=== PATIENT | female | born 1980 | race Caucasian/White ===

== ENCOUNTER 2019-11-09 20:05 | Emergency (ER) | payer OTHER, SELFPAY ==
[2019-11-09 20:11] VITALS: BP 130/94; PULSE 89; RESP 15; TEMP 36.6; O2SAT 98; BMI 28.3
[2019-11-09] MEDS: ONDANSETRON 4 MG/2 ML INJ IV ×2 (20:35→23:00)
[2019-11-09 20:42] LABS: Add Manual Diff / Slide Review NO; Basophils Absolute Auto 0 /uL (0-100); Basophils Percent Auto 0.7 % (0-2); Eosinophils Absolute Auto 100 /uL (0-450); Eosinophils Percent Auto 1.7 % (2-4); Hematocrit 45.1 % (36-46); Hemoglobin 15.7 g/dL (12.0-16.0); Lymphocytes Absolute Auto 2400 /uL (1100-4500); Lymphocytes Percent Auto 35.6 % (25-40); Mean Corpuscular HGB Conc 34.9 % (30-36); Mean Corpuscular Hemoglobin 31.6 PG (26-34); Mean Corpuscular Volume 90.8 fL (80-100); Monocytes Absolute Auto 600 /uL (0-900); Monocytes Percent Auto 8.5 % (3-14); Neutrophils Absolute Auto 3600 /uL (1500-7000); Neutrophils Percent Auto 53.5 % (50-75); Platelet Count 229 X10^3/uL (150-400); Red Blood Cell Count 4.97 X10^6/uL (4.0-5.2); Red Cell Distribution Width 12.7 % (11.6-14.8); White Blood Cell Count 6.8 X10^3/uL (4.5-11.0)
[2019-11-09 20:57] LABS: Prothrombin Time 11.5 SECONDS (10.1-12.7)
[2019-11-09 21:00] LABS: PTT Partial Thromboplastin Tim 30 SECONDS (26.4-36.2)
[2019-11-09 21:02] LABS: Alanine Aminotransferase 58 IU/L (<35); Albumin 4.6 g/dL (3.5-5.0); Albumin Globulin Ratio 1.3 (1.0-2.8); Alkaline Phosphatase 45 U/L (38-126); Aspartate Aminotransferase 26 IU/L (14-36); BUN Creatinine Ratio 19.6 (6-22); Bilirubin Total 0.4 mg/dL (0.2-1.3); Blood Urea Nitrogen 18 mg/dL (7-17); Carbon Dioxide 23 mmol/L (22-32); Chloride 107 mmol/L (98-107); Estimated Glomerular Filt Rate > 60.0 mL/min (>60); Globulin 3.5 g/dL (1.7-4.1); Glucose 94 mg/dL (70-100); HEMOLYSIS < 15 (0-50); Lipase 95 U/L (23-300); Sodium 138 mmol/L (137-145); Total Protein 8.1 g/dL (6.3-8.2)
--- NOTE | 2019-11-09 21:08 | ED.ABDPAIN ---
HPI - Abdominal Pain General Chief Complaint: Abdominal Pain Stated Complaint: abdominal pain Time Seen by Provider: 11/09/19 20:05 Source: patient and family Mode of arrival: Ambulatory Limitations: no limitations History of Present Illness HPI narrative: 39F nonsmoker presents with her and the chief complaint of ongoing RLQ pain. She started having pain last week and her took her to an outside facility where she had very extensive workup including pelvic ultrasound, CT scan and lab work. There were no significant findings and she was encouraged to take pain medications and follow up closely. She presents here tonight because of ongoing right lower quadrant pain with some nausea. She denies any fever or chills. She denies any chest pain or shortness of breath. Her pain is worse with motion and improves with rest. She denies any dysuria, frequency or urgency. She denies any vaginal bleeding or discharge. She does have a history of ovarian cysts and states this feels very similar MD complaint: abdominal pain Onset (ago): day(s) Pain Consistency: constant Location: RLQ Severity: moderate Quality: cramping and aching Radiation: none Relieving factors: movement Exacerbating factors: rest Associated symptoms: nausea Treatments prior to arrival: NSAIDs Related Data Patient : No Previous Rx's Medication Instructions Recorded ketorolac 10 mg PO Q8H PRN #20 tab 11/09/19 Allergies Allergy/AdvReac Type Severity Reaction Status Date / Time No Known Drug Allergies Allergy Verified 11/09/19 20:11 Review of Systems Constitutional Constitutional: Denies chills, Denies fatigue, Denies fever(s), Denies frequent falls, Denies lethargy and Denies weakness Eyes Eyes: Denies change in vision, Denies eye discharge, Denies irritation and Denies loss of vision ENT Ears, Nose, Mouth, and Throat: Denies change in voice, Denies dizziness, Denies neck pain, Denies sore throat and Denies throat swelling Cardiovascular Cardiovascular: Denies chest pain, Denies irregular heart rhythm, Denies lightheadedness, Denies palpitations, Denies dyspnea, Denies dyspnea on exertion and Denies orthopnea Respiratory Respiratory: Denies cough, Denies dyspnea, Denies dyspnea on exertion and Denies wheezing Gastrointestinal Gastrointestinal: Reports abdominal pain (RLQ), Denies change in bowel habits, Denies diarrhea, Reports nausea and Denies vomiting Musculoskeletal Musculoskeletal: Denies neck pain and Denies numbness Integumentary/Breasts Skin/Breast: Denies pruritus, Denies erythema, Denies rash and Denies wounds Neurologic Neurologic: Denies behavioral changes, Denies confusion, Denies dizziness, Denies frequent falls, Denies loss of vision, Denies numbness and Denies weakness Psychiatric Psychiatric: Denies anxiety, Denies behavioral changes, Denies confusion, Denies depression, Denies homicidal ideation and Denies suicidal ideation Endocrine Endocrine: Denies fatigue, Denies flushing and Denies palpitations Hematologic/Lymphatic Hematologic/Lymphatic: Denies easy bruising Allergic/Immunologic Allergic/Immunologic: Denies urticaria, Denies throat swelling and Denies wheezing Patient History Social History Smoking Status: Never smoker Smoking Status: Never smoker Substance Use Type: does not use Exam Narrative Exam Narrative: GENERAL: [39] year old patient appears stated age. Well-nourished, well-developed patient, in mild distress. Tearful HEAD: Atraumatic. Normocephalic. EYES: Pupils equal round and reactive. Extraocular motions intact. No scleral icterus. No injection or drainage. ENT: Nose without bleeding, purulent drainage. Throat without erythema, tonsillar hypertrophy or exudate. Airway patent. NECK: Trachea midline. Non tender CARDIOVASCULAR: Regular rate and rhythm without murmurs, gallops, or rubs. RESPIRATORY: Clear to auscultation. Breath sounds equal bilaterally. No wheezes, rales, or rhonchi. GASTROINTESTINAL: Abdomen soft, tender in RLQ without psoas or obturator sign, nondistended. EXTREMITIES: No edema or joint tenderness. BACK: Nontender without deformity or crepitance. No flank tenderness. NEURO: AOx3. SKIN: No rash or erythema of visible areas Initial Vital Signs Initial Vital Signs: Vital Signs Temperature 97.8 F 11/09/19 20:11 Pulse Rate 89 11/09/19 20:11 Respiratory Rate 15 11/09/19 20:11 Blood Pressure 130/94 H 11/09/19 20:11 Pulse Oximetry 98 11/09/19 20:11 Scores ABCD2 Citation: Lancet. 2006Mar 29;369(3037):283-92. Validation and refinement of scores to predict very early stroke risk after transient ischaemic attack. Amanda SC1, Karen PM, Dorian MN, Nicho MF, Zack JS, Talya AL, Roman S. Course Orders Ordered: ED Orders 11/09/19 20:35 Complete Blood Count AUTO DIFF Stat Comprehensive Metabolic Panel Stat Lipase Stat Partial Thromboplastin Time Stat Prothrombin Time INR Stat 11/09/19 22:26 CT abdomen pelvis w con Stat Discontinued Medications Hydrocodone Bitart/Acetaminophen (Vicodin 5/325 Prepack) 1 bottle MISC SEEINSTR ONE Stop: 11/09/19 23:36 Last Admin: 11/09/19 23:43 Dose: 1 bottle Documented by: RACHELEIN Hydromorphone HCl (Dilaudid) 0.5 mg IV NOW ONE Stop: 11/09/19 22:26 Last Admin: 11/09/19 23:01 Dose: 0.5 mg Documented by: JAVIER Sodium Chloride (Normal Saline 0.9%) 1,000 mls @ 1,000 mls/hr IV BOLUS ONE Stop: 11/09/19 23:24 Last Admin: 11/09/19 23:00 Dose: 1,000 mls/hr Documented by: JAVIER Ketorolac Tromethamine (Toradol) 15 mg IV NOW ONE Stop: 11/09/19 23:36 Last Admin: 11/09/19 23:42 Dose: 15 mg Documented by: RACHELEIN Ondansetron HCl (Zofran) 4 mg IV NOW ONE Stop: 11/09/19 20:28 Last Admin: 11/09/19 20:35 Dose: 4 mg Documented by: JAVIER Ondansetron HCl (Zofran) 4 mg IV NOW ONE Stop: 11/09/19 22:26 Last Admin: 11/09/19 23:00 Dose: 4 mg Documented by: JAVIER Consultations Consultation #1: discussion with on-call Airfield Engineer Officer, no new recommendations, just Toradol and follow up with appropriate return precautions Vital Signs Vital signs: Vital Signs - 8 hr 11/09/19 20:11 11/09/19 23:04 Temperature 97.8 F Pulse Rate 89 62 Respiratory Rate 15 16 Blood Pressure 130/94 H 156/82 H Pulse Oximetry 98 99 MDM - Abdominal Pain Lab Data Result diagrams: 11/09/19 20:35 11/09/19 20:35 Labs: Lab Results 11/09/19 11/09/19 11/09/19 Range/Units 20:35 20:35 20:35 WBC 6.8 (4.5-11.0) X10^3/uL RBC 4.97 (4.0-5.2) X10^6/uL Hgb 15.7 (12.0-16.0) g/dL Hct 45.1 (36-46) % MCV 90.8 (80-100) fL MCH 31.6 (26-34) PG MCHC 34.9 (30-36) % RDW 12.7 (11.6-14.8) % Plt Count 229 (150-400) X10^3/uL Neut % (Auto) 53.5 (50-75) % Lymph % (Auto) 35.6 (25-40) % Cottle % (Auto) 8.5 (3-14) % Eos % (Auto) 1.7 L (2-4) % Baso % (Auto) 0.7 (0-2) % Neut # (Auto) 3600 (9608-4312) /uL Lymph # (Auto) 2400 (6491-7806) /uL Cottle # (Auto) 600 (0-900) /uL Eos # (Auto) 100 (0-450) /uL Baso # (Auto) 0 (0-100) /uL PT 11.5 (10.1-12.7) SECONDS INR 1.0 (0.9-1.3) APTT 30 (26.4-36.2) SECONDS Sodium 138 (137-145) mmol/L Potassium 4.0 (3.4-5.1) mmol/L Chloride 107 (98-107) mmol/L Carbon Dioxide 23 (22-32) mmol/L BUN 18 H (7-17) mg/dL Creatinine 0.92 (0.52-1.04) mg/dL Estimated GFR > 60.0 (>60) mL/min BUN/Creatinine Ratio 19.6 (6-22) Glucose 94 (70-100) mg/dL Calcium 10.0 (8.4-10.2) mg/dL Total Bilirubin 0.4 (0.2-1.3) mg/dL AST 26 (14-36) IU/L ALT 58 H (<35) IU/L Alkaline Phosphatase 45 (38-126) U/L Total Protein 8.1 (6.3-8.2) g/dL Albumin 4.6 (3.5-5.0) g/dL Globulin 3.5 (1.7-4.1) g/dL Albumin/Globulin Ratio 1.3 (1.0-2.8) Lipase 95 (23-300) U/L Point of care testing: Urine Dip Bedside Urine Glucose Negative Bedside Urine Bilirubin - Negative Bedside Urine Ketone - Negative Urine Specific [place] 1.020 Bedside Urine Occult Blood - Negative Bedside Urine pH 6.0 Bedside Urine Protein - Negative Bedside Urine Urobilinogen - Negative Bedside Urine Nitrite - Negative Bedside Urine Leukocytes - Negative Esterase Imaging Data CT scan - abdomen/pelvis: Radiologist's Impression: 2cm hemorrhagic Right ovarian follicle Discharge Plan Departure Patient Disposition: Home Clinical Impression: Ovarian cyst Qualifiers: Laterality: right Qualified Code(s): N83.201 - Unspecified ovarian cyst, right side Instructions: DI for Ovarian Cyst Activity Restrictions/Additional Instructions: *You have been diagnosed with [right lower quadrant pain due to hemorrhagic ovarian cyst] *What to do: *Take medications as directed *Follow up with your primary care provider in 2-3 days, call for an appointment. Let them know you were seen in the Emergency Department and that we ask that you be seen in follow up *Return to ER if you should have any new, worsening or concerning symptoms Prescriptions: New ketorolac 10 mg tablet 10 mg PO Q8H PRN (Reason: pain) Qty: 20 RF: 0 Referrals: Vickie Jaquez MD [Physician] -
--- NOTE | 2019-11-09 22:26 | DI.CT.S_ITS ---
PROCEDURE: CT ABDOMEN PELVIS W CON INDICATIONS: severe RLQ pain TECHNIQUE: After the administration of intravenous contrast, 5 mm thick sections acquired from the diaphragm to the symphysis. 5 mm coronal and sagittal reformats were acquired. For radiation dose reduction, the following was used: automated exposure control, adjustment of mA and/or kV according to patient size. COMPARISON: None. FINDINGS: Image quality: Excellent. ABDOMEN: Lung bases: Lung bases are clear. Heart size is normal. Solid organs: Liver is normal in size and enhancement. Gallbladder is unremarkable. Biliary system is non dilated. Pancreas enhances normally. Spleen is normal in size and enhancement. No adrenal nodules. Kidneys demonstrate normal size and enhancement, without hydronephrosis. Peritoneum and bowel: Bowel loops demonstrate normal wall thickness and caliber. No free fluid or air. Nodes and vessels: No retroperitoneal or mesenteric adenopathy by size criteria. Aorta and inferior vena cava are normal in size. Miscellaneous: No ventral hernias. PELVIS: Genitourinary: Bladder wall thickness is normal. Uterus is unremarkable in CT appearance. Probable 2 cm hemorrhagic right ovarian cyst/follicle. Miscellaneous: No inguinal hernias or adenopathy. Bones: No suspicious bony lesions. No vertebral body compression fractures. IMPRESSION: Probable 2 cm hemorrhagic right ovarian cyst. No other acute abnormalities identified in the abdomen or pelvis. No significant discrepancy with the car shifter radiology preliminary report. Dictated by: Pieter Olivier M.D. on 11/10/2019 at 7:11 Approved by: Pieter Olivier M.D. on 11/10/2019 at 7:15
[2019-11-09] MEDS: SODIUM CHLORIDE 0.9% 1,000 ML 1000 ML IV (23:00)
[2019-11-09] MEDS: HYDROMORPHONE 0.5 MG INJ IV (23:01)
[2019-11-09 23:04] VITALS: BP 156/82; PULSE 62; RESP 16; O2SAT 99
[2019-11-09] MEDS: KETOROLAC 60 MG/2 ML VIAL 15 MG IV (23:42)
[2019-11-09] MEDS: HYDROCODONE/ACET 5/325 PREPACK 1 BOTTLE MISC (23:43)
== END 2019-11-10 00:01 | disposition home or self-care (01) ==
PROVIDERS: Emergency Provider Emergency Medicine
DX: N83.201 Unspecified ovarian cyst, right side (principal); R11.0 Nausea
CPT/HCPCS: 36415; 74177; 80053; 81003; 83690; 85025; 85610; 85730; 96361; 96374; 96375; 96376; 99284; J1170; J1885; J2405; Q9967

== ENCOUNTER 2024-07-12 10:24 | Emergency (ER) | payer OTHER, SELFPAY ==
[2024-07-12 10:34] VITALS: BP 152/90; PULSE 71; RESP 18; TEMP 36.9; O2SAT 99; BMI 30.9
[2024-07-12 10:38] VITALS: PULSE 70
--- NOTE | 2024-07-12 11:15 | ED.UPPEXIN ---
HPI - Extremity Injury (Upper) <Nithin Harrison PA-C - Last Filed: 07/12/24 12:32> General Chief Complaint: Extremity Injury, Upper Stated Complaint: Swelling on left arm Time Seen by Provider: 07/12/24 11:14 Source: patient Mode of arrival: Ambulatory History of Present Illness HPI narrative: 44-year-old female presents to the ED with 2 days of left hand, forearm swelling, pain, redness. Patient states that her symptoms started with a red spot on the top of the left dorsal forearm, with an area of swelling right below it. Patient states that yesterday her left hand was swollen with a streak coming down from the forearm into the hand. Patient states that the redness seems to have reduced today, however her forearm and hand continue to be painful to touch. No trauma, known insect bites. Patient states she has been gardening over the last few days. Patient is right-hand dominant. No numbness, tingling, weakness. Related Data Home Medications Medication Instructions Recorded Confirmed levothyroxine 150 mcg tablet 150 mcg PO DAILY 11/23/19 11/23/19 (Synthroid) Previous Rx's Medication Instructions Recorded desogestrel-e.estradiol 0.15 See Rx Instructions .Route 09/17/21 mg-0.02 mg(21)/e.estrad 0.01 mg(5) .COMPLEX #84 tabs tablet (Volnea (28)) Allergies Allergy/AdvReac Type Severity Reaction Status Date / Time No Known Drug Allergies Allergy Verified 11/23/19 15:26 Review of Systems <Nithin Harrison PA-C - Last Filed: 07/12/24 12:32> Constitutional Constitutional: Denies chills, Denies fatigue, Denies fever(s), Denies frequent falls, Denies lethargy and Denies weakness Eyes Eyes: Denies change in vision, Denies eye discharge, Denies irritation and Denies loss of vision ENT Ears, Nose, Mouth, and Throat: Denies change in voice, Denies dizziness, Denies neck pain, Denies sore throat and Denies throat swelling Cardiovascular Cardiovascular: Denies chest pain, Denies irregular heart rhythm, Denies lightheadedness, Denies palpitations, Denies dyspnea, Denies dyspnea on exertion and Denies orthopnea Respiratory Respiratory: Denies cough, Denies dyspnea, Denies dyspnea on exertion and Denies wheezing Gastrointestinal Gastrointestinal: Denies abdominal pain, Denies change in bowel habits, Denies diarrhea, Denies nausea and Denies vomiting Musculoskeletal Musculoskeletal: Denies neck pain and Denies numbness Comments: left hand, forearm swelling, redness, pain Integumentary/Breasts Skin/Breast: Denies pruritus, Denies erythema, Denies rash and Denies wounds Neurologic Neurologic: Denies behavioral changes, Denies confusion, Denies dizziness, Denies frequent falls, Denies loss of vision, Denies numbness and Denies weakness Psychiatric Psychiatric: Denies anxiety, Denies behavioral changes, Denies confusion, Denies depression, Denies homicidal ideation and Denies suicidal ideation Endocrine Endocrine: Denies fatigue, Denies flushing and Denies palpitations Hematologic/Lymphatic Hematologic/Lymphatic: Denies easy bruising Allergic/Immunologic Allergic/Immunologic: Denies urticaria, Denies throat swelling and Denies wheezing Patient History <Nithin Harrison PA-C - Last Filed: 07/12/24 12:32> Medical History Hypothyroidism Surgical History Previous section Social History Smoking Status: Former smoker Smoking Status: Former smoker Exam <Nithin Harrison PA-C - Last Filed: 07/12/24 12:32> Narrative Exam Narrative: Const General:?cooperative, healthy appearing and comfortable [facility] Head:?normal to inspection Ears:?hearing grossly normal bilaterally Nose:?external nose normal Face and sinus:?normal facial exam and sinuses nontender Mouth:?oral mucosae normal Throat:?posterior oropharynx normal Eyes General:?appearance normal, both eyes and all related structures Neck Neck:?normal visual inspection and no lymphadenopathy noted Resp Effort & Inspection:?normal respiratory effort Auscultation:?clear to auscultation bilaterally Cardio Rate:?regular rate Rhythm:?regular rhythm Musculoskeletal / Integumentary There is some faint erythema, tendernessand swelling on the distal forearm, on the dorsal aspect. full range of motion. Strength and sensation is intact. Neurovascularly intact. Neuro General:?patient alert, patient awake and patient oriented x3 Initial Vital Signs Initial Vital Signs: Vital Signs Temperature 98.5 F 07/12/24 10:34 Pulse Rate 71 07/12/24 10:34 Respiratory Rate 18 07/12/24 10:34 Blood Pressure 152/90 H 07/12/24 10:34 Pulse Oximetry 99 07/12/24 10:34 Oxygen Delivery Method Room Air 07/12/24 10:34 <Sly Crowe DO - Last Filed: 07/18/24 20:59> Initial Vital Signs Initial Vital Signs: Vital Signs Temperature 98.5 F 07/12/24 10:34 Pulse Rate 71 07/12/24 10:34 Respiratory Rate 18 07/12/24 10:34 Blood Pressure 152/90 H 07/12/24 10:34 Pulse Oximetry 99 07/12/24 10:34 Oxygen Delivery Method Room Air 07/12/24 10:34 Course <Nithin Harrison PA-C - Last Filed: 07/12/24 12:32> Orders Ordered: Discontinued Medications Ketorolac Tromethamine (Ketorolac 30 Mg/Ml Vial) 15 mg IV NOW ONE Stop: 07/12/24 11:33 Last Admin: 07/12/24 11:50 Dose: 15 mg Documented By: RB Vital Signs Vital signs: Vital Signs - 8 hr 07/12/24 10:34 07/12/24 10:38 Temperature 98.5 F Pulse Rate 71 Pulse Rate [Left Radial] 70 Respiratory Rate 18 Blood Pressure 152/90 H Pulse Oximetry 99 Oxygen Delivery Method Room Air <Syl Crowe DO - Last Filed: 07/18/24 20:59> Orders Ordered: Discontinued Medications Ketorolac Tromethamine (Ketorolac 30 Mg/Ml Vial) 15 mg IV NOW ONE Stop: 07/12/24 11:33 Last Admin: 07/12/24 11:50 Dose: 15 mg Documented By: RB Vital Signs Vital signs: Vital Signs - 8 hr 07/12/24 10:34 07/12/24 10:38 Temperature 98.5 F Pulse Rate 71 Pulse Rate [Left Radial] 70 Respiratory Rate 18 Blood Pressure 152/90 H Pulse Oximetry 99 Oxygen Delivery Method Room Air MDM - Extremity Injury (Upper) <Nithin Harrison PA-C - Last Filed: 07/12/24 12:32> Lab Data 07/12/24 11:40 07/12/24 11:40 Labs: Lab Results 07/12/24 Range/Units 11:40 WBC 7.3 (4.5-11.0) X10^3/uL RBC 4.51 (4.0-5.2) X10^6/uL Hgb 14.2 (12.0-16.0) g/dL Hct 41.2 (36-46) % MCV 91.3 (80-100) fL MCH 31.6 (26-34) PG MCHC 34.6 (30-36) % RDW 12.7 (11.6-14.8) % Plt Count 260 (150-400) X10^3/uL Neut % (Auto) 55.0 (50-75) % Lymph % (Auto) 27.9 (25-40) % [place] % (Auto) 6.6 (3-14) % Eos % (Auto) 9.6 H (2-4) % Baso % (Auto) 0.9 (0-2) % Neut # (Auto) 4000 (4815-6339) /uL Lymph # (Auto) 2000 (7812-8763) /uL Sampson # (Auto) 500 (0-900) /uL Eos # (Auto) 700 H (0-450) /uL Baso # (Auto) 100 (0-100) /uL Sodium 137 (137-145) mmol/L Potassium 4.0 (3.4-5.1) mmol/L Chloride 103 (98-107) mmol/L Carbon Dioxide 25 (22-32) mmol/L BUN 20 H (7-17) mg/dL Creatinine 0.88 (0.52-1.04) mg/dL Estimated GFR > 60 (>60) mL/min BUN/Creatinine Ratio 22.7 H (6-22) Glucose 101 H (70-99) mg/dL Lactate 1.4 (0.7-2.1) mmol/L Calcium 9.7 (8.4-10.2) mg/dL Total Bilirubin 0.7 (0.2-1.3) mg/dL AST 28 (14-36) IU/L ALT 25 (<35) IU/L Alkaline Phosphatase 75 (38-126) U/L Total Protein 7.9 (6.3-8.2) g/dL Albumin 4.6 (3.5-5.0) g/dL Globulin 3.3 (1.7-4.1) g/dL Albumin/Globulin Ratio 1.4 (1.0-2.8) MDM Narrative Medical decision making narrative: 44-year-old female presents to the ED with 2 days of left hand, forearm swelling, pain, redness. Concern for cellulitis versus musculoskeletal sprain/strain versus other. Will obtain CT, labs. Will give ketorolac for pain. Will reassess. Labs within normal limits. CT scan shows questionable minimal subcutaneous fat stranding which may represent inflammation such as cellulitis. No organized fluid collections. No visualized fracture or dislocation. No suspicious osseous lesion. No erosions. Discussed findings with patient. Antibiotics prescribed. Recommend follow-up with PCP. ED return precautions discussed with patient. Patient verbalized understanding. Medical records reviewed: Yes <Syl Crowe DO - Last Filed: 07/18/24 20:59> Lab Data Labs: Lab Results 07/12/24 Range/Units 11:40 WBC 7.3 (4.5-11.0) X10^3/uL RBC 4.51 (4.0-5.2) X10^6/uL Hgb 14.2 (12.0-16.0) g/dL Hct 41.2 (36-46) % MCV 91.3 (80-100) fL MCH 31.6 (26-34) PG MCHC 34.6 (30-36) % RDW 12.7 (11.6-14.8) % Plt Count 260 (150-400) X10^3/uL Neut % (Auto) 55.0 (50-75) % Lymph % (Auto) 27.9 (25-40) % Sampson % (Auto) 6.6 (3-14) % Eos % (Auto) 9.6 H (2-4) % Baso % (Auto) 0.9 (0-2) % Neut # (Auto) 4000 (6667-2135) /uL Lymph # (Auto) 2000 (8732-5452) /uL Sampson # (Auto) 500 (0-900) /uL Eos # (Auto) 700 H (0-450) /uL Baso # (Auto) 100 (0-100) /uL Sodium 137 (137-145) mmol/L Potassium 4.0 (3.4-5.1) mmol/L Chloride 103 (98-107) mmol/L Carbon Dioxide 25 (22-32) mmol/L BUN 20 H (7-17) mg/dL Creatinine 0.88 (0.52-1.04) mg/dL Estimated GFR > 60 (>60) mL/min BUN/Creatinine Ratio 22.7 H (6-22) Glucose 101 H (70-99) mg/dL Lactate 1.4 (0.7-2.1) mmol/L Calcium 9.7 (8.4-10.2) mg/dL Total Bilirubin 0.7 (0.2-1.3) mg/dL AST 28 (14-36) IU/L ALT 25 (<35) IU/L Alkaline Phosphatase 75 (38-126) U/L Total Protein 7.9 (6.3-8.2) g/dL Albumin 4.6 (3.5-5.0) g/dL Globulin 3.3 (1.7-4.1) g/dL Albumin/Globulin Ratio 1.4 (1.0-2.8) Discharge Plan Departure Patient Disposition: Home Clinical Impression: Cellulitis Qualifiers: Site of cellulitis: extremity Site of cellulitis of extremity: upper extremity Laterality: left Qualified Code(s): L03.114 - Cellulitis of left upper limb Instructions: DI for Cellulitis -- Adult Activity Restrictions/Additional Instructions: You were evaluated in the ED today for left forearm swelling, pain. Your labs were normal. Your CT scan does show a skin infection, for which you are being prescribed antibiotics. Please follow-up with your PCP as soon as possible. Return to the ED if you have worsening symptoms, numbness, tingling, weakness. Prescriptions: No Action desog-e.estradiol/e.estradiol [Volnea (28)] 0.15-0.02 mgx21 /0.01 mg x 5 tablet See Rx Instructions .ROUTE .COMPLEX Qty: 84 3RF Dose Instruction: take 1 tablet by mouth once daily Rx Instructions: take 1 tablet by mouth once daily levothyroxine [Synthroid] 150 mcg tablet 150 mcg PO DAILY Stand Alone Forms: Patient Portal/API/Survey ED Sign-out <Syl Crowe DO - Last Filed: 07/18/24 20:59> Cosign ED Attending Cosantature Attestation: I was available for consultation.
--- NOTE | 2024-07-12 11:30 | DI.CT.S_ITS ---
PROCEDURE: CT UE LT W CON INDICATIONS: forearm swelling, pain TECHNIQUE: After the administration of intravenous contrast, 3 mm axial sections acquired of the upper extremity , with coronal and sagittal reformats. COMPARISON: None. FINDINGS: Image quality: Excellent. Bones: No visualized fracture or dislocation. No suspicious osseous lesion. No erosions. Soft tissues: Muscles are unremarkable. No areas of abnormal enhancement. No fluid collections. Questionable minimal stranding in the subcutaneous fat at the distal aspect of the extremity near the wrist. IMPRESSION: Questionable minimal subcutaneous fat stranding which may represent inflammation such as cellulitis. No organized fluid collections. Dictated by: Alondra Stovall M.D. on 07/12/2024 at 12:16 Approved by: Alondra Stovall M.D. on 07/12/2024 at 12:18
[2024-07-12] MEDS: KETOROLAC 30 MG/ML VIAL 15 MG IV (11:50)
[2024-07-12 11:51] LABS: Add Manual Diff / Slide Review NO; Basophils Absolute Auto 100 /uL (0-100); Basophils Percent Auto 0.9 % (0-2); Eosinophils Absolute Auto 700 /uL (0-450); Eosinophils Percent Auto 9.6 % (2-4); Hematocrit 41.2 % (36-46); Hemoglobin 14.2 g/dL (12.0-16.0); Lymphocytes Absolute Auto 2000 /uL (1100-4500); Lymphocytes Percent Auto 27.9 % (25-40); Mean Corpuscular HGB Conc 34.6 % (30-36); Mean Corpuscular Hemoglobin 31.6 PG (26-34); Mean Corpuscular Volume 91.3 fL (80-100); Monocytes Absolute Auto 500 /uL (0-900); Monocytes Percent Auto 6.6 % (3-14); Neutrophils Absolute Auto 4000 /uL (1500-7000); Platelet Count 260 X10^3/uL (150-400); Red Blood Cell Count 4.51 X10^6/uL (4.0-5.2); Red Cell Distribution Width 12.7 % (11.6-14.8); White Blood Cell Count 7.3 X10^3/uL (4.5-11.0)
[2024-07-12 12:02] LABS: Alanine Aminotransferase 25 IU/L (<35); Albumin 4.6 g/dL (3.5-5.0); Albumin Globulin Ratio 1.4 (1.0-2.8); Alkaline Phosphatase 75 U/L (38-126); Aspartate Aminotransferase 28 IU/L (14-36); BUN Creatinine Ratio 22.7 (6-22); Bilirubin Total 0.7 mg/dL (0.2-1.3); Blood Urea Nitrogen 20 mg/dL (7-17); Calcium 9.7 mg/dL (8.4-10.2); Carbon Dioxide 25 mmol/L (22-32); Chloride 103 mmol/L (98-107); Estimated Glomerular Filt Rate > 60 mL/min (>60); Globulin 3.3 g/dL (1.7-4.1); Glucose 101 mg/dL (70-99); HEMOLYSIS < 15 (0-50); Lactate (Lactic Acid) 1.4 mmol/L (0.7-2.1); Sodium 137 mmol/L (137-145); Total Protein 7.9 g/dL (6.3-8.2)
[2024-07-12 12:32] VITALS: BP 126/86; PULSE 60; RESP 16; TEMP 36.6; O2SAT 100
== END 2024-07-12 12:35 | disposition home or self-care (01) ==
PROVIDERS: Emergency Provider Student in an Organized Health Care Education/Training Program
DX: L03.114 Cellulitis of left upper limb (principal)
CPT/HCPCS: 36415; 73201; 80053; 83605; 85025; 96374; 99284; J1885